=== PATIENT | male | born 1955 | race Caucasian/White ===

== ENCOUNTER 2024-10-16 13:51 | Outpatient (CLI) | payer MEDICARE, SELFPAY ==
--- NOTE | 2024-10-16 13:56 | XR_ITS ---
FINAL REPORT CLINICAL HISTORY: Toenail Injury mashed great toe FINDINGS: 3 views were obtained. No acute fracture or dislocation is identified. Joint spaces are maintained. Bones are osteopenic. No soft tissue abnormality is identified. IMPRESSION: No acute process. Reviewed, Interpreted and Dictated by Deepali Adorno MD Transcribed by HIREN Gandara Authenticated and [facility]
== END 2024-10-16 23:59 | disposition home or self-care (01) ==
LOC: RAD 13:54
PROVIDERS: PCP Family Medicine; Visit Provider Nurse Practitioner
DX: L60.3 Nail dystrophy (principal); S90.211A Contusion of right great toe with damage to nail, initial encounter; S90.221A Contusion of right lesser toe(s) with damage to nail, initial encounter; S91.201A Unspecified open wound of right great toe with damage to nail, initial encounter
CPT/HCPCS: 73630